=== PATIENT | male | born 1985 | race Caucasian/White ===

== ENCOUNTER 2020-09-01 07:04 | Outpatient (CLI) | payer OTHER ==
--- NOTE | 2020-09-01 15:38 | MRI Report ---
PROCEDURE: Lumbar Spine W/O INDICATIONS: LOW BACK PAIN, LUMBAR RADICULOPATHY TECHNIQUE: Noncontrast sagittal T1 spin echo and T2 fast echo, sagittal STIR, axial T1 and T2 fast spin echo thr ough the lumbar spine. In cases with scoliosis, additional coronal T2 fast spin echo may be performe d. COMPARISON: None. FINDINGS: Image quality: Excellent. Alignment and Curvature: There is trace retrolisthesis of L3 on L4, L5 on S1, trace anterolisthesis of L4 on L5. Bone Marrow: Marrow is of normal overall signal. Schmorl's node with associated reactive marrow salcido ges noted along the inferior endplate of L3 and L5 as well as superior endplate of L4. Minimal reacti ve endplate changes are present at L3-4, L4-5, L5-S1. No acute vertebral body compression fractures. Spinal Cord: Conus medullaris terminates at the T12-L1 level. Visualized cord demonstrates normal s ignal and size. Paraspinous Soft Tissues: No paravertebral masses. Discs: Mild to moderate desiccation is present at L3-4, L4-5, L5-S1. L1-L2: No disc bulge, spinal stenosis or foraminal narrowing. L2-L3: No disc bulge, spinal stenosis or foraminal narrowing. L3-L4: Minimal disc bulge without spinal stenosis or foraminal narrowing. L4-L5: Minimal disc bulge without spinal stenosis or foraminal narrowing. L5-S1: Mild disc bulge with superimposed left posterior paracentral extrusion with compromise of th e left lateral recess. There is mild narrowing of the proximal left foramina. IMPRESSION: 1. Mild disc bulge with superimposed extrusion at L5-S1 with compromise of the left lateral recess an d proximal left foramina. Reviewed by: Carmencita Delgado MD on 09/01/2020 3:36 PM PST Approved by: Carmencita Delgado MD on 09/01/2020 3:36 PM PST Station ID: [id number]
== END 2020-09-01 07:05 | disposition home or self-care (01) ==
LOC: DI 07:04
PROVIDERS: ATTEND Student in an Organized Health Care Education/Training Program
DX: M51.27 Other intervertebral disc displacement, lumbosacral region (principal)
CPT/HCPCS: 72148

== ENCOUNTER 2022-04-03 07:42 | Outpatient (CLI) | payer OTHER ==
--- NOTE | 2022-04-03 19:54 | MRI Report ---
PROCEDURE: Lumbar Spine W/O INDICATIONS: RADICULOPATHY TECHNIQUE: Noncontrast sagittal T1 spin echo and T2 fast echo, sagittal STIR, axial T1 and T2 fast spin echo thr ough the lumbar spine. In cases with scoliosis, additional coronal T2 fast spin echo may be performe d. COMPARISON: 09/01/2020 MRI lumbar spine FINDINGS: Normal lumbar vertebral body height and alignment. Mild discogenic marrow edema at the opposing L5-S1 endplates. Otherwise normal bone marrow signal intensity. Normal position and appearance of the conu s. Prevertebral and paraspinous soft tissues demonstrate no acute finding. T12-L1: Normal in appearance. L1-L2: Normal in appearance. L2-L3: Normal in appearance. L3-L4: Disc desiccation and disc height loss. Circumferential disc bulge flattens the ventral theca l sac without mass effect upon the traversing L4 nerve roots. No neural foraminal stenosis. L4-L5: Annular fissure of the disc and central and paracentral zones. Disc desiccation and disc heigh t loss. Circumferential disc bulge flattens the ventral thecal sac without mass effect upon the trave rsing L5 nerve roots. No neural foraminal stenosis. L5-S1: Annular fissure of the disc in the central and right paracentral zone. Disc desiccation and d isc height loss. Diffuse disc bulge without mass effect upon the traversing S1 nerve roots. No neural foraminal stenosis. IMPRESSION: No evidence of focal nerve root impingement. No spinal canal or neural foraminal stenosis. Previously seen disc bulge and extrusion at L5-S1 have resolved. Annular fissures of the L4-L5 and L5-S1 discs are potential sources of nonradicular axial back pain. Reviewed by: Gutierrez Dobbins MD on 04/03/2022 7:52 PM PDT Approved by: Gutierrez Dobbins MD on 04/03/2022 7:52 PM PDT Station ID: [id number]
== END 2022-04-03 07:43 | disposition home or self-care (01) ==
LOC: DI 07:42
PROVIDERS: ATTEND Student in an Organized Health Care Education/Training Program
DX: M51.37 Other intervertebral disc degeneration, lumbosacral region (principal); M51.36 Other intervertebral disc degeneration, lumbar region

== ENCOUNTER 2023-01-09 08:27 | Outpatient (CLI) | payer OTHER ==
[2023-01-09] MEDS ORDERED: LIDOCAINE-MPF 1% 5 ML VIAL ONE (08:40)
[2023-01-09] MEDS ORDERED: BUPIVACAINE 0.5% PF 10 ML VIAL ONE (08:40)
[2023-01-09] MEDS ORDERED: GADOBUTROL 7.5 MMOL/7.5 ML VIAL ONE (08:41)
[2023-01-09] MEDS ORDERED: LIDOCAINE-MPF 1% 5 ML VIAL TD ONE (09:29)
[2023-01-09] MEDS ORDERED: GADOBUTROL 7.5 MMOL/7.5 ML VIAL IVP ONE (09:29)
--- NOTE | 2023-01-09 14:00 | MRI Report ---
PROCEDURE: ARTHROGRAM SHOULDER - RT INDICATIONS: RT SHOULDER PAIN TECHNIQUE: After the administration of 12 mL of dilute intra-articular Gadolinium contrast, oblique coronal T1 a nd T2 spin echo with fat saturation, oblique sagittal T1 spin echo with and without fat saturation, o blique sagittal T2 fast spin echo with fat saturation, axial T1 spin echo with fat saturation through the shoulder. COMPARISON: None. FINDINGS: Image quality: Excellent. Rotator cuff: Low-grade articular and bursal surface partial-thickness tear involving distal supraspi natus at its insertion on humeral head is seen extending to musculotendinous junction. Distal infrasp inatus tendinosis is seen. Distal subscapularis tendinosis is also noted. No full-thickness rotator c uff tendon rupture.. No significant rotator cuff muscle atrophy on sagittal images. Bones and bursae: No bone marrow contusions or fractures. Mild acromioclavicular joint osteoarthriti c changes are seen with joint space narrowing and small downward osteophyte formation depressing on m usculotendinous junction of supraspinatus. The acromion demonstrates conventional anatomy, without an os acromiale. Capsule and soft tissues: There is subtle signal abnormality and contour irregularity with contrast e xtension in superior anterior labrum at 12 to 1:00 position suggestive of subtle superior anterior la bral tear. Fraying of anterior inferior labrum at 5 to 6:00 position is also noted with subtle contra st extension concerning for anterior inferior labral tear. The glenohumeral ligaments appear intact. The long head of the biceps tendon demonstrates normal location and morphology. The rotator interva l appears normal, without fibrosis. The coracohumeral ligament is of normal thickness. No intra-art icular bodies. IMPRESSION: 1. Low-grade articular and bursal surface partial-thickness tear involving distal supraspinatus exten ding to musculotendinous junction. Distal infraspinatus and subscapularis tendinosis. No full-thickne ss rotator cuff tendon rupture. 2. Mild acromioclavicular joint osteoarthritis. No fracture or dislocation. No gross intra-articular loose bodies. 3. Subtle superior anterior labral tear at 12 to 1:00 position an anterior inferior labral tear at 5 to 6:00 position. Reviewed by: Vivek Toney MD on 01/09/2023 1:59 PM PDT Approved by: Vivek Toney MD on 01/09/2023 1:59 PM PDT Station ID: [id number]
--- NOTE | 2023-01-09 16:21 | XRAY Report ---
PROCEDURE: Arthrogram Needle Placement INDICATIONS: RT SHOULDER PAIN CONTRAST: Intra-articular FLUOROSCOPY TIME: 0.1 MIN TECHNIQUE: The indications, alternatives, benefits, risks, and complications of the procedure were explained to the patient. Written informed consent was obtained and placed in the chart. The shoulder was examin ed fluoroscopically and a site for needle placement chosen for entry into the glenohumeral joint from an anterior approach. The skin was prepped and draped in the usual fashion, and 1% lidocaine infilt rated from skin down to joint capsule. A spinal needle was inserted into the glenohumeral joint, and a small amount of iodinated contrast media injected to confirm intra-articular placement of the need le tip. This was followed by approximately 12 mL dilute solution of a gadolinium containing MR contr ast agent. The needle was removed and a dressing was applied. The patient was given postprocedural instructions and sent to the MR suite for MR imaging. FINDINGS: A single fluoroscopic spot image demonstrates intra-articular location of injected iodinated contrast . IMPRESSION: Successful fluoroscopically guided administration of dilute Gadolinium solution into the shoulder lucia allison for MR arthrogram. Reviewed by: Shakir King MD on 01/09/2023 4:20 PM PDT Approved by: Shakir King MD on 01/09/2023 4:20 PM PDT Station ID: [id number]
== END 2023-01-09 08:28 | disposition home or self-care (01) ==
LOC: DI 08:27
PROVIDERS: ATTEND Internal Medicine
DX: M75.111 Incomplete rotator cuff tear or rupture of right shoulder, not specified as traumatic (principal); M19.011 Primary osteoarthritis, right shoulder; S43.491A Other sprain of right shoulder joint, initial encounter
CPT/HCPCS: 23350; 73222; 77002; A9585; Q9965